=== PATIENT | male | born 1965 | race Caucasian/White ===

== ENCOUNTER → 2016-10-18 15:55 | Outpatient (CLI) | payer BC ==
[2014-02-17 08:33] VITALS: BMI 22.3
[~2016-10-18 15:55] MED LIST: GLUCOPHAGE500 MG PO; HYDROCODONE-APA1 TAB PO
== END | disposition home or self-care (01) ==
LOC: D.MRI 15:55
DX: M25.512 Pain in left shoulder (principal)

== ENCOUNTER 2016-12-27 05:52 | Day surgery (SDC) | payer BC ==
[2016-12-26 14:17] LABS: HEMATOCRIT 46.4 % (42.0-54.0); MCH 30.5 pg (26.0-34.0); MCHC 34.5 g/dL (31.0-37.0); MCV 88.4 fL (80.0-100.0); MEAN PLATELET VOLUME 10.7 fL (7.4-10.4); RBC 5.25 10x6/uL (4.20-6.10); RDW 12.7 % (11.5-14.5); WBC 4.6 10x3/uL (4.8-10.8)
[2016-12-26 14:31] LABS: ANION GAP 10.2 mmol/L (8-16); CALCIUM 10.2 mg/dL (8.5-10.1); CARBON DIOXIDE 31.4 mmol/L (21.0-32.0); CREATININE - SERUM 1.2 mg/dL (0.6-1.3); POTASSIUM - SERUM 4.6 mmol/L (3.5-5.1)
[~2016-12-27] VITALS: Ht 180.3 cm; Wt 72.6 kg
--- NOTE | ~2016-12-27 | OP ---
PATIENT NAME: HAL REID MEDICAL RECORD: [id number] :65 LOCATION:[facility] ADMISSION DATE: SURGEON: LIAM JUAREZ MD DATE OF OPERATION: 12/27/2016 PREOPERATIVE DIAGNOSES: 1. Impingement syndrome of the left shoulder. 2. Acromioclavicular arthritis of the left shoulder. 3. Rotator cuff tear of the left shoulder. POSTOPERATIVE DIAGNOSES: 1. Impingement syndrome of the left shoulder. 2. Acromioclavicular arthritis of the left shoulder. 3. Rotator cuff tear of the left shoulder. PROCEDURES: 1. Arthroscopic rotator cuff repair of the left shoulder. 2. Arthroscopic distal clavicle of the left shoulder, arthroscopic subacromial decompression with acromioplasty and bursectomy of the left shoulder. SURGEON: Liam Juarez MD. ANESTHESIA: General. INTRAOPERATIVE COMPLICATIONS: None. SUMMARY OF PATHOLOGIC FINDINGS: Consistent with the preoperative diagnosis; the patient had full thickness rotator cuff tearing, grade III impingement syndrome, as well as acromioclavicular arthritis. OPERATIVE SUMMARY IN DETAIL: After obtaining the appropriate preoperative orthopedic surgery consent as well as anesthetic consultation, evaluation and clearance, the patient was brought to the operating room and placed on the operating table in supine position. After adequate general laryngeal mask was administered, the patient was placed in a right lateral decubitus position. All pressure points were well padded to include down leg peroneal pad as well as axillary roll. The patient was held firmly to the operating table using the vacuum pack suction system. The left upper extremity and shoulder were then prepped and draped in routine sterile fashion. The arm was held in the [employer] traction boom at 30 degrees of forward flexion, 30 degrees of abduction and 10 pounds of traction laterally. Arthroscopy was established in the glenohumeral joint from a posterior portal. Anterior portal was established in the anterior safe interval. Diagnostic arthroscopy did show the patient to have a rotator cuff tear. Transrotator cuff tear portal was created for debridement and decortication of the supraspinatus tendinous footprint and take down of nonviable-appearing rotator cuff tissue. Attention was turned to the subacromial space. The Elmer tissue ablation system was utilized to denude the undersurface of the acromion of soft tissue elements and release coracoacromial ligament. A 5-0 barrel abby was used to perform acromioplasty at the level of acromioclavicular joint through a separate arthroscopic anterior portal under direct arthroscopic visualization, 1 cm of distal clavicle was taken down along with this residual and underlying osteophytes. Further decortication was carried out for reapproximation of the rotator cuff. All subacromial bursa was taken down, #2 FiberTape was passed in inverted fashion and then it was anchored laterally with a 5.5 SwiveLock from [employer]. Having completed this, arthroscopy OPERATIVE REPORT [id number] HAL REID portals were closed in routine interrupted fashion using 4-0 Prolene. Sterile dressings were applied. The patient was awakened and taken to recovery room in stable condition. All final needle and sponge counts were correct. TRANSINT:[id number] Voice Confirmation ID: [id number] DOCUMENT ID: [id number] ANN PRETTY, LIAM HAIRSTON CC: [id number] DICTATION DATE: 01/02/17525 FAMILY MEDICINE CHAIR: 01/02/17 1458 [facility] 12/27/[address] [id number]
[~2016-12-27 05:52] MED LIST changes: +ACTOS30 MG PO; +CENTRUM MEN'S1 EACH PO; +GINKGO BILOBA120 MG PO; +GLUCOPHAGE1000 MG PO; +SINGULAIR10 MG PO; +VITAMIN C1000 MG PO; +VITAMIN D3400 UNI1 PO; +VITAMIN E100 UNIT PO; +[UNRECOGNIZED DRUG - OTHER] PO
[2016-12-27 06:21] VITALS: Ht 180.3 cm; Wt 72.6 kg
[2016-12-27] MEDS ORDERED: HYDROCODONE-APA1 TAB PO (09:04)
--- NOTE | 2016-12-27 16:14 | NUR ---
1030 IV DC WITH CATHER TIP INTACT
== END 2016-12-27 10:40 | disposition home or self-care (01) ==
LOC: D.OPS 05:52 → D.PAN 07:30 → D.OPS 08:00
PROVIDERS: Anesthesiology
DX: M75.102 Unspecified rotator cuff tear or rupture of left shoulder, not specified as traumatic (principal); M13.812 Other specified arthritis, left shoulder; M75.42 Impingement syndrome of left shoulder; E11.9 Type 2 diabetes mellitus without complications; Z01.812 Encounter for preprocedural laboratory examination